=== PATIENT | male | born 1955 | race Caucasian/White ===

== ENCOUNTER 2018-08-16 13:25 | Day surgery (SDC) | payer BC ==
[~2018-08-16 13:25] MED LIST: Pre Op ABX Message 1 EACH MISC MISCELLANE ONE
[2018-08-16 14:01] VITALS: BMI 33.1
[2018-08-16] MEDS ORDERED: LACTATED RINGERS 1,000 ML IV ONE ×2 (14:10→16:19)
[2018-08-16 14:12] VITALS: RESP 16; TEMP 96.8
[2018-08-16] MEDS ORDERED: LIDOCAINE 1% 20 ML VIAL (10MG/ML) FOR IV START SQ ONE (14:15)
[2018-08-16] MEDS ORDERED: DEXAMETHASONE SOD PHOSPHATE 10 MG/ML 1 ML VIAL IV ONE (14:17)
[2018-08-16] MEDS ORDERED: ONDANSETRON 4 MG/2 ML VIAL IVP ONE (14:17)
[2018-08-16] MEDS ORDERED: fentaNYL (PF) 50 MCG/ML 2 ML AMP ONE (15:52)
[2018-08-16] MEDS ORDERED: ceFAZolin 1,000 MG VIAL ONE (15:52)
[2018-08-16] MEDS ORDERED: KETAMINE 10 MG/ML 20 ML VIAL ONE (15:52)
[2018-08-16] MEDS ORDERED: MIDAZOLAM 2 MG/2 ML VIAL ONE (15:52)
[2018-08-16] MEDS ORDERED: LIDOCAINE 1% INJ 10MG/ML (20 ML MDV) ONE (15:52)
[2018-08-16] MEDS ORDERED: PROPOFOL 10 MG/ML 20 ML VIAL IV ONE (15:52)
[2018-08-16] MEDS ORDERED: SODIUM CHLORIDE 0.9% 100 ML with ceFAZolin 2,000 MG IV ONE ×2 (16:00)
[2018-08-16] MEDS ORDERED: BUPIVACAINE (PF) 0.5% 30 ML VIAL SQ ONE (16:22)
[2018-08-16] MEDS ORDERED: LIDOCAINE 2% (PF) 20 MG/ML 10 ML AMP SQ ONE (16:22)
[2018-08-16 17:23] VITALS: BP 137/90; PULSE 76
--- NOTE | 2018-08-17 12:58 | P.OP ---
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 Irrigation and debridement of traumatic, transphalangeal amputation of the left ring finger distal phalanx 2. Primary wound closure with local V-Y advancement flap Anesthesia: MAC, local Surgeon: aHn Rosenbaum Estimated Blood Loss (ml): 1 Pathology: none sent Condition: stable Disposition: PACU Indications for Procedure: The patient is a pleasant 63-year-old male who sustained a complete amputation of the tip of the left ring finger, resulting in nail plate avulsion with exposed bone. Treatment options were presented, along with their respective risks and benefits. These included local wound care and healing by secondary intention versus surgical debridement and wound closure. Questions were invited and answered. The patient expressed understanding, acceptance of the risks and wished to proceed with surgery. The operative site was confirmed and marked. Consent forms were signed. Description of Procedure: The patient was positioned supine with the operative limb on an arm board. Monitored anesthesia was administered uneventfully. A time-out was performed, confirming the patient, the operative side, site and the procedure to be performed: all team members expressed agreement. Using aseptic technique, a digital block was performed using local anesthetic without epinephrine. The right upper extremity was then prepped and draped in standard, sterile fashion. A strip of the Esmarch was cut and clamped at the base of the digit as a tourniquet. Loupe magnification was used throughout the case for optimum visualization. The wound was explored. There is no gross contamination or foreign debris. Exposed bone was noted at the end of the nailbed. A tiny, loose fragment, devoid of soft tissue attachment, was excised. There was a small fragment still attached to the ulnar corner of the nailbed which reduced well and was left in place. The end of the bone and surrounding soft tissues were carefully debrided with a curette and copiously irrigated with normal saline. The nailbed showed an irregular contour and signs of trauma but no discrete lacerations or focal defects. No further treatment was deemed necessary. Once adequate debridement was achieved, the wound was reassessed. The wound looked clean and the surrounding skin edges appeared healthy. The decision was made to proceed with primary closure with local V-Y advancement flap. Incisions were made on the volar aspect of the phalanx, with the apex distal to the DIP flexion crease. The pulp tissue was elevated off the volar aspect of the distal phalanx and fibrous septae were divided. The flap was advanced to cover the exposed bone of the distal phalanx. The flap was sutured in place without tension using interrupted 5-0 nylon sutures. The tourniquet was released. Good hemostasis was confirmed. The flap showed good perfusion. Sterile dressings of Adaptic, 4 x 4's, Darcie and Coban were applied. All sponge, needle and instrument counts were correct at the end of the case. The patient tolerated the procedure well. He was taken to recovery in stable condition.
== END 2018-08-16 17:44 | disposition home or self-care (01) ==
LOC: OR 13:25
PROVIDERS: ATTEND Orthopaedic Surgery
DX: S68.615A Complete traumatic transphalangeal amputation of left ring finger, initial encounter (principal); W20.8XXA Other cause of strike by thrown, projected or falling object, initial encounter; Y93.89 Activity, other specified; I10 Essential (primary) hypertension; Z79.82 Long term (current) use of aspirin; Z79.899 Other long term (current) drug therapy
CPT/HCPCS: 14040; J1100; J2001; J2405; J0690